=== PATIENT | female | born 1945 | race Caucasian/White ===

== ENCOUNTER 2017-02-20 09:10 | Emergency (ER) | payer MEDICARE ==
[~2017-02-20] VITALS: Ht 172.7 cm; Wt 52.2 kg
[2017-02-20 09:53] VITALS: BP 138/43
[2017-02-20] MEDS ORDERED: cefTRIAXone W LIDOCAINE 1 GM IM IM ONE (10:30)
[2017-02-20 10:31] LABS: Basophils # (auto) 0 uL; Basophils % (auto) 0.7 % (0.0-2.0); Eosinophils # (auto) 0 uL; Eosinophils % (auto) 0.4 % (0.0-7.0); Hematocrit 38.2 % (36.0-46.0); Hemoglobin 12.8 g/dL (12.2-16.2); Lymphocytes # (auto) 1.1 uL; Lymphocytes % (auto) 25.3 % (10.0-50.0); Mean Corpuscular Hemoglobin 29.8 pg (28.0-32.0); Mean Corpuscular Hgb Conc. 33.5 g/dL (32.0-36.0); Mean Corpuscular Volume 89.1 fL (80.0-100.0); Mean Platelet Volume 8.5 fL (7.4-10.4); Monocytes # (auto) 0.5 uL; Monocytes % (auto) 11.5 % (0.0-12.0); Neutrophils # (auto) 2.6 uL; Neutrophils % (auto) 62.1 % (37.0-80.0); Platelet Count (auto) 147 10^3/uL (140-450); White Blood Cell 4.2 10^3/uL (4.4-10.8)
[2017-02-20 10:39] LABS: Albumin 3.5 g/dL (3.4-5.0); Anion Gap 10 (5-15); Aspartate Aminotransferase 15 U/L (15-37); BUN/Creatinine Ratio 26.8; Blood Urea Nitrogen 22 mg/dL (7-18); Calcium 8.4 mg/dL (8.5-10.1); Carbon Dioxide 24 mmol/L (21-32); Chloride 106 mmol/L (98-107); GFR African American 89 mL/min; GFR Non-African American 73 mL/min; Glucose 97 mg/dL (74-106); HEMOLYSIS - HIL 1; ICTERIA - HIL 1; LIPEMIA - HIL 1; Potassium 4.1 mmol/L (3.5-5.1); Sodium 140 mmol/L (136-145)
[2017-02-20 10:44] LABS: Alkaline Phosphatase 57 U/L (45-117); Bilirubin, Total 0.1 mg/dL (0.2-1.0); Total Protein 6.7 g/dL (6.4-8.2)
[2017-02-20] MEDS ORDERED: cefTRIAXone 1GM/50ML D5W 50 ML IV ONE ×2 (10:46→11:00)
[2017-02-20] MEDS ORDERED: ACETAMINOPHEN 325 MG TAB PO ONE (11:00)
== END 2017-02-20 11:55 | disposition home or self-care (01) ==
LOC: EDBD 09:10 → EDSEX 09:10 → ER 09:11
DX: J40 Bronchitis, not specified as acute or chronic (principal); R53.1 Weakness; R55 Syncope and collapse; M19.90 Unspecified osteoarthritis, unspecified site; G43.909 Migraine, unspecified, not intractable, without status migrainosus; Z90.49 Acquired absence of other specified parts of digestive tract; Z90.710 Acquired absence of both cervix and uterus; R42 Dizziness and giddiness
CPT/HCPCS: 36415; 70450; 71010; 80053; 83735; 84484; 85025; 87040; 93005; 96365; 99285; J0696; J7030

== ENCOUNTER 2017-02-28 09:41 | Emergency (ER) | payer MEDICARE ==
[~2017-02-28] VITALS: Ht 157.5 cm; Wt 52.2 kg
[2017-02-28] MEDS ORDERED: ALBUTEROL SULF 2.5 MG/0.5ML(0.5%) NEB SOLN NEB ONE (10:45)
[2017-02-28] MEDS ORDERED: cefTRIAXone 1GM/50ML D5W 50 ML IV ONE (10:45)
[2017-02-28] MEDS ORDERED: IPRATROPIUM BROM 0.5 MG/2.5ML INH SOL NEB ONE (10:45)
[2017-02-28 10:56] VITALS: BP 126/73
[2017-02-28 11:09] LABS: Basophils # (auto) 0 uL; Basophils % (auto) 0.3 % (0.0-2.0); CONDITION Y; Eosinophils # (auto) 0 uL; Eosinophils % (auto) 0.3 % (0.0-7.0); Hematocrit 39.5 % (36.0-46.0); Hemoglobin 13.3 g/dL (12.2-16.2); Lymphocytes # (auto) 1.4 uL; Lymphocytes % (auto) 14.1 % (10.0-50.0); Mean Corpuscular Hemoglobin 29.8 pg (28.0-32.0); Mean Corpuscular Hgb Conc. 33.7 g/dL (32.0-36.0); Mean Corpuscular Volume 88.6 fL (80.0-100.0); Mean Platelet Volume 8.5 fL (7.4-10.4); Monocytes # (auto) 0.5 uL; Monocytes % (auto) 4.9 % (0.0-12.0); Neutrophils % (auto) 80.4 % (37.0-80.0); Platelet Count (auto) 248 10^3/uL (140-450); Red Cell Distribution Width 12.5 % (11.6-16.0); White Blood Cell 9.9 10^3/uL (4.4-10.8)
[2017-02-28] MEDS ORDERED: HYDROcodone-ACET 5/325MG TAB PO ONE (11:30)
[2017-02-28] MEDS ORDERED: PROMETHAZINE-DM 5 ML ORAL SYRUP PO ONE (12:45)
== END 2017-02-28 12:57 | disposition home or self-care (01) ==
LOC: EDBD 09:41 → ER 09:41
DX: J40 Bronchitis, not specified as acute or chronic (principal); M19.90 Unspecified osteoarthritis, unspecified site; Z90.89 Acquired absence of other organs; Z90.710 Acquired absence of both cervix and uterus
CPT/HCPCS: 36415; 71010; 85025; 93005; 94640; 96365; 99285; J0696